=== PATIENT | male | born 1960 | race Caucasian/White ===

== ENCOUNTER 2021-05-22 10:46 | Emergency (ER) | payer OTHER ==
[~2021-05-22] VITALS: Ht 188 cm; Wt 104.3 kg
[~2021-05-22 10:46] MED LIST: ZOFRAN ODT4 MG PO
[2021-05-22] MEDS ORDERED: VITAMINS (11:04)
[2021-05-22 11:16] LABS: ABSOLUTE BASOPHILS 0.1 thou/uL (0.0-0.2); ABSOLUTE EOSINOPHILS 0.1 thou/uL (0.0-0.7); ABSOLUTE LYMPHOCYTES 1.8 thou/uL (0.8-5.3); ABSOLUTE MONOCYTES 0.8 thou/uL (0.0-1.2); BASOPHILS 0.6 %; EOSINOPHILS 1.2 %; HEMOGLOBIN 15.5 gm/dL (14.0-18.0); LYMPHOCYTES 20.3 %; MCH 31.6 pg (26.0-34.0); MCHC 35.2 g/dL (28.0-37.0); MCV 89.8 fL (80.0-100.0); MONOCYTES 9.1 %; MPV 6.5 fl. (7.2-11.1); NUCLEATED RBCS 0 /100WBC; PLATELET COUNT* 186 thou/uL (150-400); POLYS 68.8 %; WBC 8.8 thou/uL (4.0-11.0)
[2021-05-22 11:20] LABS: URINE BILIRUBIN NEGATIVE (Negative); URINE BLOOD NEGATIVE (Negative); URINE CLARITY CLEAR; URINE COLOR YELLOW; URINE GLUCOSE-RANDOM NEGATIVE (Negative); URINE KETONES NEGATIVE (Negative); URINE LEUKOCYTES-REFLEX NEGATIVE (Negative); URINE NITRITE-REFLEX NEGATIVE (Negative); URINE PROTEIN NEGATIVE (Negative); URINE SPECIFIC GRAVITY >= 1.030 (1.005-1.030); URINE UROBILINOGEN 0.2 E.U./dl (0.2-1.0)
[2021-05-22 11:27] LABS: CREATININE 1.2 mg/dL (0.6-1.3)
[2021-05-22 11:31] LABS: ALBUMIN 3.9 g/dL (3.4-5.0); TOTAL BILIRUBIN 1.1 mg/dL (<0.1-1.0)
[2021-05-22] MEDS ORDERED: CIPROFLOXACIN500 M1 PO (13:08)
[2021-05-22] MEDS ORDERED: METRONIDAZOLE500 M4 PO (13:09)
[2021-05-22 13:21] VITALS: BP 145/70
--- NOTE | 2021-05-23 16:32 | EKG ---
[place] [address] ELECTROCARDIOGRAM REPORT Name: BOBJASWINDER Shanae Room: 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: [facility] : 1960 Requested By: Richie Reyes Order Number: [id number] MD: Henry Avendaño Measurements Intervals Mobile Rate: 69 P: 60 CO: 180 QRS: 37 QRSD: 93 T: 53 QT: 393 QTc: 421 Interpretive Statements Sinus rhythm Baseline wander in lead(s) V2 Compared to ECG 06/05/2013 10:25:06 No significant changes Electronically Signed On 05-23-2021 16:32:33 [employer] by Henry Avendaño [email or web address] <ELECTRONICALLY SIGNED> By: Henry Avendaño MD, FAC 05/23/21 1632 1103 1103 Henry Avendaño MD, [facility] /EPI
== END 2021-05-22 13:22 | disposition home or self-care (01) ==
LOC: M.ERS 10:46
PROVIDERS: Physician Assistant
DX: K52.9 Noninfective gastroenteritis and colitis, unspecified (principal); E78.00 Pure hypercholesterolemia, unspecified; Z79.899 Other long term (current) drug therapy